=== PATIENT | male | born 1955 | race Caucasian/White ===

== ENCOUNTER 2023-09-16 07:38 | Outpatient (CLI) | payer MEDICARE, SELFPAY ==
--- NOTE | ~2023-09-16 | MR_ITS ---
MRI of the lumbar spine Clinical History: Back pain Technique: Axial T2-weighted images, and sagittal T1-weighted, T2-weighted, and T2 fat-sat images wer e acquired. Findings: There are bilateral L4 pars interarticularis defects, with 13 mm anterolisthesis of L4 over L5. There is 6 mm retrolisthesis of L1 over L2. There are type I Modic changes about the L1-L2 and L 4-L5 disc spaces. At L1-L2, there is severe degenerative disc narrowing. There is mild disc bulge and moderate to advan minerva facet arthropathy. There is minimal central canal stenosis. There is mild to moderate bilateral n eural foraminal narrowing. At L2-L3, there is mild diffuse disc bulge with advanced facet arthropathy. There is moderate central canal stenosis/thecal sac compression. There is mild bilateral neural foraminal narrowing. L3-L4, there is mild disc bulge with advanced facet arthropathy. There is mild spinal canal stenosis/ thecal sac compression. Bilateral neural foramina are preserved. At L4-L5, there is severe degenerative disc narrowing. There is disc bulge/uncovering with moderate f acet arthropathy, and moderate to advanced spinal canal stenosis/thecal sac compression. There is sev ere bilateral neural foraminal comprise. At L5-S1, there is mild disc bulge with advanced facet arthropathy. There is moderate spinal canal st enosis/thecal sac compression, with prominent epidural fat at this level. Bilateral neural foramina a re preserved. Paravertebral soft tissues are unremarkable. Impression: Bilateral L4 pars interarticularis defects, with 13 mm anterolisthesis of L4 over L5. 6 mm retrolisthesis of L1 over L2. Advanced degenerative spondylosis, as above, worst at L4-L5. Reviewed, dictated and finalized at [facility]. Impression: Bilateral L4 pars interarticularis defects, with 13 mm anterolisthesis of L4 ov er L5. 6 mm retrolisthesis of L1 over L2. Advanced degenerative spondylosis, as above, worst at L4-L5.
== END 2023-09-16 07:39 ==
LOC: MICIMG 07:39
PROVIDERS: PCP Family Medicine; Visit Provider Family Medicine
DX: M54.42 Lumbago with sciatica, left side (principal); M43.16 Spondylolisthesis, lumbar region; M47.896 Other spondylosis, lumbar region; G89.29 Other chronic pain
CPT/HCPCS: 72148